=== PATIENT | female | born 1985 ===

== ENCOUNTER 2020-03-28 05:24 | Inpatient (IN) ==
[2020-03-28] MEDS ORDERED: LACTATED RINGER'S 1,000 ML IV SCH ×2 (05:30→10:15)
[2020-03-28 05:54] LABS: Basophils # (auto) 0.03 K/uL (0-0.2); Basophils % (auto) 0.2 %; Eosinophils # (auto) 0.16 K/uL (0-0.5); Eosinophils % (auto) 1.1 %; Hematocrit (blood only) 37.9 % (37-47); Immature Granulocytes % (auto) 0.7 %; Lymphocytes # (auto) 3.09 K/uL (1.2-3.4); Lymphocytes % (auto) 21.1 %; Mean Corpuscular Hemoglobin 31.1 pg (25-34); Mean Corpuscular Hgb Conc 34.3 g/dL (32-36); Mean Corpuscular Volume 90.7 fL (80-100); Monocytes # (auto) 1.31 K/uL (0.11-0.59); Neutrophils # (auto) 9.94 K/uL (1.4-6.5); Neutrophils % (auto) 67.9 %; Platelet Count 244 K/uL (130-400); RDW Coefficient of Variation 13.6 % (11.5-14.5); RDW Standard Deviation 44.6 fL (36.4-46.3); Red Blood Count 4.18 M/uL (4.2-5.4); White Blood Count 14.63 K/uL (4.8-10.8)
[2020-03-28] MEDS: LACTATED RINGER'S 1,000 ML IV SCH ×2 (05:54→06:55)
[2020-03-28] MEDS ORDERED: ceFAZolin 2,000 MG in SYRINGE 0 ML IV SCH (06:00)
[2020-03-28] MEDS ORDERED: CITRIC ACID/SODIUM CITRATE 15 ML UDC PO SCH (06:00)
[2020-03-28] MEDS ORDERED: MoRPHine SULFATE PF 1 MG/ML 10 ML AMP/VIAL ONE (06:35)
[2020-03-28] MEDS ORDERED: fentaNYL citrate 100 MCG/2 ML VIAL ONE (06:35)
[2020-03-28] MEDS ORDERED: ONDANSETRON INJ 2 MG/ML 2 ML VIAL ONE (06:38)
[2020-03-28] MEDS ORDERED: PHENYLEPHRINE 100MCG/ML 5ML SYR ONE (06:38)
[2020-03-28] MEDS ORDERED: OXYTOCIN 10 UNITS/ML VIAL ONE (06:38)
--- NOTE | 2020-03-28 06:51 | Anesthesiology Consultation ---
Date of Service March 28, 2020 Assessment & Plan (1) Encounter for pre-operative examination: Chart Review Chart Review: Acceptable Risk for Surgery and Patient NOT seen in Pre Admission Testing Consults Requested none History Surgery Operation Date: 03/28/20 07:30 Proposed Procedures p Section - Robbie Kirby MD Height/Weight Height: 5 ft 8 in Weight: 115.666 kg Allergies Allergy/AdvReac Type Severity Reaction Status Date / Time No Known Allergies Allergy Verified 03/17/20 14:56 Medications Home Medications Medication Instructions Recorded Confirmed Last Taken no.144-folic acid 1 tab PO DAILY 03/17/20 03/28/20 03/27/20 20:00 [] Active Medications Generic Name Dose Route Start Last Admin Trade Name Freq PRN Reason Stop Dose Admin Lactated Ringer's 1,000 mls @ 999 mls/hr 03/28/20 06:00 03/28/20 05:54 Lr IV 03/28/20 07:00 999 mls/hr .Q1H1M CARLITO Administration Past Medical History Medical History Migraine Exercise / Class Metabolic Activity II 4-5 Yardwork/Stairs/Walk up hill Past Family History Family History Grandmother (Maternal) Family history of diabetes mellitus Other No family history of adverse response to anesthesia Past Surgical History Surgical History History of colposcopy LGSIL- Neg high risk HPV on 10/22/19 [place] teeth removed Past Anesthesia History No Hx of Anesthesia Complications and No Family Hx of Anesthesia Complications History of PONV No Hx of PONV and No Hx of Motion Sickness Social History Smoking Status: Never smoker Hx Alcohol Use: No Hx Substance Use: No substance use type: does not use Physical Exam Vital Signs Last Vital Signs Temp 36.7 C 03/28/20 05:37 Pulse 104 H 03/28/20 05:38 Resp 20 03/28/20 05:37 BP 146/89 H 03/28/20 05:38 Testing Laboratory Results 03/28/20 05:42
--- NOTE | 2020-03-28 07:19 | History & Physical Bridge Note ---
Date of Service March 28, 2020 History & Physical Bridge Note I have examined the patient, reviewed the History & Physical and in the interval since the performance of the History & Physical I have noted the following changes of clinical significance: no changes noted
--- NOTE | 2020-03-28 07:58 | Obstetrical Progress Note ---
Date of Service March 28, 2020 Assessment & Plan Admission and Anticipated Discharge Date Admission Date: March 28, 2020 Subjective Patient scheduled for primary for breech presentation. I did a b edside ultrasound this morning confirming breech presentation. Consents signed. Results & Data ([facility]) Vital Signs (Past 12 Hours) Vital Signs Temp Pulse Resp BP 03/28/20 05:38 104 H 146/89 H 03/28/20 05:37 36.7 C 20 03/28/20 05:34 36.7 C 20
[2020-03-28] MEDS ORDERED: NALOXONE HCL 0.08 MG in SYRINGE 1.8 ML IV PRN (08:24)
[2020-03-28] MEDS ORDERED: KETOROLAC 30 MG/ML VIAL IV PRN (08:24)
[2020-03-28] MEDS ORDERED: ePHEDrine sulfate 50 MG/ML AMP IV PRN (08:24)
[2020-03-28] MEDS ORDERED: ONDANSETRON INJ 2 MG/ML 2 ML VIAL IV PRN (08:24)
[2020-03-28] MEDS ORDERED: NALOXONE HCL 0.4 MG/1 ML VIAL/CARP IV PRN (08:24)
[2020-03-28] MEDS ORDERED: MoRPHine SULFATE PF 1 MG/ML 10 ML AMP/VIAL INT SPINAL ONE (08:24)
[2020-03-28] MEDS ORDERED: MEPERIDINE HCL 25 MG/ML CARP/VIAL IV PRN (08:24)
[2020-03-28] MEDS ORDERED: NALOXONE HCL 1 MG in SODIUM CHLORIDE 0.9% 1000ML 1,000 ML IV PRN (08:24)
[2020-03-28] MEDS ORDERED: diphenhydrAMINE 50 MG/ML VIAL IV PRN (08:24)
[2020-03-28] MEDS ORDERED: LACTATED RINGER'S 500 ML IV PRN (08:24)
[2020-03-28] MEDS ORDERED: MoRPHine SULFATE 2 MG/ML CARP IV PRN (08:24)
[2020-03-28] MEDS ORDERED: NO NARCOTICS OR SEDATIVES SCH (08:30)
[2020-03-28] MEDS ORDERED: SODIUM CHLORIDE 0.9% 1000ML 1,000 ML IV SCH (08:30)
[2020-03-28] MEDS ORDERED: DC INTRASPINAL MORPHINE SCH (08:30)
--- NOTE | 2020-03-28 08:50 | Post Operative Brief Note ---
Immediate Post Op Note v1 Date of Surgery March 28, 2020 Pre & Post Diagnosis Operation Date: 03/28/20 07:30 Pre-Op Diagnosis: 1. Primary Caesarean section 2. Breech presentation Post-Op Diagnosis: Same I identified the patient and participated in the time-out.: Yes Procedure Operation Date: 03/28/20 07:30 Actual Procedures p Section with delivery of viable female at 0818 in Main OR 3. - Robbie Kirby MD Surgeon Robbie Kirby MD Java Grails Developer Dr. Taylor Estimated Blood Loss 600 Findings Consistent with Post-Op Diagnosis Drains Maharaj Catheter (maharaj catheter inserted after spinal placed; clear yellow urine noted upon insertion. )
--- NOTE | 2020-03-28 09:14 | Anesthesiology Progress Note ---
Date of Service March 28, 2020 Anesthesia Post Procedure Vital Signs Vital Signs: Temp Pulse Resp BP Pulse Ox 03/28/20 09:12 83 96 03/28/20 09:11 86 110/56 L 03/28/20 09:07 80 96 03/28/20 09:03 80 112/56 L 03/28/20 09:02 81 91 03/28/20 05:38 104 H 146/89 H 03/28/20 05:37 36.7 C 20 03/28/20 05:34 36.7 C 20 Transfer of Care Handoff Completed per policy Notes Mental Status: alert / awake / arousable and participated in evaluation Patient Amnestic to Procedure: Yes Nausea / Vomiting: adequately controlled Pain: adequately controlled Airway Patency, RR, SpO2: stable & adequate BP & HR: stable & adequate Hydration State: stable & adequate Neuraxial Anesthesia: was administered and sensory block is resolving Anesthetic Complications: no major complications apparent and Pt Satisfied with anesthetic care
[2020-03-28] MEDS ORDERED: HYDROCORTISONE ACETATE 25 MG SUPP PR PRN (10:15)
[2020-03-28] MEDS ORDERED: SENNA 8.6 MG TAB PO PRN (10:15)
[2020-03-28] MEDS ORDERED: NON-FORMULARY MEDICATION (Prenatal No.144-Folic Acid [Prenatal] 400 mcg Tablet,Chewable) PO SCH (10:15)
[2020-03-28] MEDS ORDERED: SUPERCREAM 0.870% 15 GM JAR EXT PRN (10:15)
[2020-03-28] MEDS ORDERED: BENZOCAINE 20% AER SPR 82.5 GM CAN EXT PRN (10:15)
[2020-03-28] MEDS ORDERED: DIPHTHERIA/TETANUS/PERTUSSIS 0.5 ML SYR/VIAL IM ONE (10:15)
[2020-03-28] MEDS ORDERED: MAGNESIUM HYDROXIDE SUSP 30 ML UDC PO PRN (10:15)
[2020-03-28] MEDS ORDERED: OXYTOCIN 30 UNITS in LACTATED RINGER'S 1,000 ML IV SCH (10:30)
[2020-03-28] MEDS: SIMETHICONE 80 MG CHEW PO SCH ×3 (14:48→21:13)
[2020-03-28] MEDS ORDERED: PROMETHAZINE HCL 25 MG in SODIUM CHLORIDE 0.9% 50 ML IV STA (14:57)
[2020-03-28] MEDS: DOCUSATE SODIUM 100 MG CAP PO SCH (21:13)
--- NOTE | 2020-03-28 23:20 | Operative Report (OR) ---
DATE OF OPERATION: 03/28/2020 PREOPERATIVE DIAGNOSIS: Term , cliff breech presentation. POSTOPERATIVE DIAGNOSIS: Term , cliff breech presentation. PROCEDURE: Primary section, low segment transverse. SURGEON: Robbie Kirby MD. FASHION ADVISER: Nba Taylor MD. Dr. Taylor was present and helped with the delivery of the baby including providing retraction, fundal pressure and necessary services that were required during the procedure. ANESTHESIA: Spinal. CLINICAL HISTORY: The patient is a 34-year-old female 1, para 0, at 39 weeks, admitted for primary section for cliff breech presentation. The patient was scanned prior to the start of the confirming breech presentation. Timeout was called prior to the start of the procedure and antibiotics were given preop. FINDINGS: Live female, Apgars were 8 and 9, weight 8 pounds 10 ounces. COMPLICATIONS: None. ESTIMATED BLOOD LOSS: 600 mL. DESCRIPTION OF PROCEDURE: Under satisfactory spinal anesthesia, the patient was prepped and draped in the usual sterile fashion. A low Pfannenstiel incision was then made, carrying down into the abdominal layers in successive layers without difficulty. Upon entering into the abdominal cavity, the uterus was noted to be dextrorotated. The baby was still in the breech presentation. The William self-retaining retractor was placed. Metzenbaum scissors were then used to develop sharp dissection of the bladder flap. A low segment transverse incision over the lower uterine segment was made. The incision was widened in the AP diameter. The amniotic sac was nicked and found to be clear. was then delivered from the cliff breech presentation, delivering a live female. Delayed cord clamping for 1 minute was accomplished. Apgars were 8 and 9, was 8 pounds 10 ounces. After the cord was doubly clamped and cut, baby was handed to cognos bi administrator without any difficulties. Cord blood was obtained and submitted to pathology and the placenta was then delivered spontaneously and intact. Uterus was then exteriorized. Ring forceps were then placed on both angles in the inferior margin and another ring was used to dilate the cervix. Uterus was closed in a double layer closure starting with 0 Vicryl suture in a continuous interlocking fashion followed by a second imbricating suture of 0 Vicryl suture. Initial sponge, needle and instrument count were found to be correct. The lower uterine segment was inspected, no active bleeding was noted. The self-retaining retractor was then removed. The lower uterine segment was once more inspected. The contents of the pelvic and abdominal cavity were then irrigated to clear. Tubes, ovaries bilaterally were found to be normal. Fascia was then reapproximated with 0 Vicryl suture in a continuous fashion. Subcuticular space was then irrigated. Bleeders were cauterized and the subcuticular layer was closed with 3-0 plain suture, followed by 4-0 Monocryl for skin. Steri-Strips were then applied. Clear urine was noted from the Sellers. Estimated blood loss 600 mL. The final sponge, needle and instrument count were found to be correct. The patient was placed supine on a stretcher and taken to recovery room in stable condition. I attest to the content of the Intraoperative Record and any orders documented therein. Any exception s are noted below.
[2020-03-29] MEDS ORDERED: ONDANSETRON INJ 2 MG/ML 2 ML VIAL IV PRN (02:24)
[2020-03-29] MEDS ORDERED: MEPERIDINE HCL 50 MG/ML CARP IV PRN (02:25)
[2020-03-29] MEDS ORDERED: PROMETHAZINE HCL 25 MG in SODIUM CHLORIDE 0.9% 50 ML IV PRN (02:25)
[2020-03-29] MEDS ORDERED: diphenhydrAMINE 50 MG/ML VIAL IV PRN (02:25)
[2020-03-29] MEDS ORDERED: diphenhydrAMINE Capsule 25 MG CAP PO PRN (02:25)
[2020-03-29] MEDS ORDERED: KETOROLAC 30 MG/ML VIAL IV PRN (02:25)
[2020-03-29] MEDS: IBUPROFEN 600 MG TAB PO PRN ×5 (03:25→23:39)
[2020-03-29] MEDS: oxyCODONE/ACETAMINOPHEN 5mg/325mg TAB PO PRN ×5 (03:25→23:39)
[2020-03-29 06:29] LABS: Basophils # (auto) 0.03 K/uL (0-0.2); Basophils % (auto) 0.2 %; Eosinophils % (auto) 0.5 %; Hemoglobin 12.7 g/dL (12.0-16.0); Immature Granulocytes % (auto) 0.5 %; Lymphocytes # (auto) 2.51 K/uL (1.2-3.4); Lymphocytes % (auto) 13.7 %; Mean Corpuscular Hemoglobin 30.9 pg (25-34); Mean Corpuscular Hgb Conc 33.4 g/dL (32-36); Mean Corpuscular Volume 92.5 fL (80-100); Mean Platelet Volume 9.8 fL (7.4-10.4); Monocytes # (auto) 1.62 K/uL (0.11-0.59); Monocytes % (auto) 8.8 %; Neutrophils # (auto) 13.98 K/uL (1.4-6.5); Neutrophils % (auto) 76.3 %; Platelet Count 254 K/uL (130-400); RDW Coefficient of Variation 13.8 % (11.5-14.5); RDW Standard Deviation 46.9 fL (36.4-46.3); Red Blood Count 4.11 M/uL (4.2-5.4); White Blood Count 18.34 K/uL (4.8-10.8)
--- NOTE | 2020-03-29 07:43 | Obstetrical Progress Note ---
Date of Service March 29, 2020 Assessment & Plan Admission and Anticipated Discharge Date Admission Date: March 28, 2020 Subjective Patient is seen and examined. She feels well, no complaints. Pain is under control with oral meds. Ambulating without dizziness. Voiding without difficulty Tolerating regular diet with out N&V Flatus NEG BM NEG Bleeding is minimal No fever/ chills/ CP/ SOB/ N&V/ Leg pain Breast feeding without problems Vital Signs Temp Pulse Resp BP Pulse Ox 03/29/20 03:35 37.0 C 92 H 18 119/78 93 03/29/20 01:10 36.9 C 86 18 106/67 97 03/28/20 23:15 18 97 03/28/20 22:00 16 91 03/28/20 21:00 16 91 03/28/20 20:00 16 93 Lab Results 03/28/20 03/28/20 03/29/20 Range/Units 05:42 05:43 06:08 WBC 14.63 H 18.34 H (4.8-10.8) K/uL RBC 4.18 L 4.11 L (4.2-5.4) M/uL Hgb 13.0 12.7 (12.0-16.0) g/dL Hct 37.9 38.0 (37-47) % MCV 90.7 92.5 (80-100) fL MCH 31.1 30.9 (25-34) pg MCHC 34.3 33.4 (32-36) g/dL RDW Std Deviation 44.6 46.9 H (36.4-46.3) fL RDW Coeff of Pankaj 13.6 13.8 (11.5-14.5) % Plt Count 244 254 (130-400) K/uL MPV 10.0 9.8 (7.4-10.4) fL Immature Gran % (Auto) 0.7 0.5 % Neut % (Auto) 67.9 76.3 % Lymph % (Auto) 21.1 13.7 % [place] % (Auto) 9.0 8.8 % Eos % (Auto) 1.1 0.5 % Baso % (Auto) 0.2 0.2 % Neut # (Auto) 9.94 H 13.98 H (1.4-6.5) K/uL Lymph # (Auto) 3.09 2.51 (1.2-3.4) K/uL [place] # (Auto) 1.31 H 1.62 H (0.11-0.59) K/uL Eos # (Auto) 0.16 0.10 (0-0.5) K/uL Baso # (Auto) 0.03 0.03 (0-0.2) K/uL Immature Gran # (Auto) 0.10 H 0.10 H (0.00-0.02) K/uL Blood Type B Positive Antibody Screen NEGATIVE PE: General: Alert, orientedx3, NAD CVS: S1S2 RRR Lungs; CTAB Abd: soft, NT, ND, BS+, fundus firm, below Umbilicus Incision/ Dressing: Clean, dry, intact Perineum intact, Lochia rubra minimal Ext; NT, no edema, Homans sign neg/ neg AP: 34 yo s/p C Section, pod# 1 VSS Afebrile doing well Continue routine postop care Encourage ambulation, PO intake All questions were answered Results & Data ([facility]) Vital Signs (Past 12 Hours) Vital Signs Temp Pulse Resp BP Pulse Ox 03/29/20 03:35 37.0 C 92 H 18 119/78 93 03/29/20 01:10 36.9 C 86 18 106/67 97 03/28/20 23:15 18 97 03/28/20 22:00 16 91 03/28/20 21:00 16 91 03/28/20 20:00 16 93
[2020-03-29] MEDS: SIMETHICONE 80 MG CHEW PO SCH ×4 (08:44→20:32)
[2020-03-29] MEDS: DOCUSATE SODIUM 100 MG CAP PO SCH ×2 (08:44→20:32)
[2020-03-29] MEDS: FERROUS SULFATE 325 MG TAB PO SCH (10:02)
[2020-03-29] MEDS: PRENATAL VITAMIN 1 TAB PO SCH (10:03)
[2020-03-29] MEDS ORDERED: bisacodyL 5 MG TABEC PO SCH (20:00)
[2020-03-30 07:08] LABS: Basophils # (auto) 0.04 K/uL (0-0.2); Basophils % (auto) 0.3 %; Eosinophils # (auto) 0.33 K/uL (0-0.5); Eosinophils % (auto) 2.4 %; Hematocrit (blood only) 34.6 % (37-47); Hemoglobin 11.5 g/dL (12.0-16.0); Immature Granulocytes # (auto) 0.08 K/uL (0.00-0.02); Immature Granulocytes % (auto) 0.6 %; Mean Corpuscular Hemoglobin 30.6 pg (25-34); Mean Corpuscular Hgb Conc 33.2 g/dL (32-36); Mean Platelet Volume 9.5 fL (7.4-10.4); Monocytes % (auto) 10.3 %; Neutrophils # (auto) 8.37 K/uL (1.4-6.5); Neutrophils % (auto) 61.4 %; Platelet Count 233 K/uL (130-400); RDW Coefficient of Variation 13.7 % (11.5-14.5); RDW Standard Deviation 45.2 fL (36.4-46.3); Red Blood Count 3.76 M/uL (4.2-5.4); White Blood Count 13.62 K/uL (4.8-10.8)
--- NOTE | 2020-03-30 07:26 | Obstetrical Progress Note ---
Date of Service March 30, 2020 Assessment & Plan Admission and Anticipated Discharge Date Admission Date: March 28, 2020 Subjective Patient's O2 sats have been dropping to mid 80's during sleep. Recovers to mid 90's upon waking up She denies CP/SOB/ snoring or h/o Sleep apnea She is alert Orientedx3 NAD CVS S1 S2 RRR Lungs; CTAB, decreased in bases Ext: NT,Arnold's sign neg/ neg, no erythema Episodic hypoxemia Plan consult hospitalist Discussed with hospitalist team Results & Data ([facility]) Vital Signs (Past 12 Hours) Vital Signs Temp Pulse Resp BP Pulse Ox 03/29/20 23:30 37.1 C 90 16 114/65 95
[2020-03-30] MEDS: IBUPROFEN 600 MG TAB PO PRN ×3 (07:51→17:52)
[2020-03-30] MEDS: SIMETHICONE 80 MG CHEW PO SCH ×4 (07:51→21:17)
[2020-03-30] MEDS: oxyCODONE/ACETAMINOPHEN 5mg/325mg TAB PO PRN (07:51)
[2020-03-30] MEDS: DOCUSATE SODIUM 100 MG CAP PO SCH ×2 (07:52→21:17)
[2020-03-30] MEDS: FERROUS SULFATE 325 MG TAB PO SCH (07:52)
[2020-03-30] MEDS: PRENATAL VITAMIN 1 TAB PO SCH (07:52)
[2020-03-30] MEDS ORDERED: bisacodyL 10 MG SUPP PR PRN (08:51)
--- NOTE | 2020-03-30 10:44 | Hospitalist Progress Note ---
Date of Service March 30, 2020 Assessment & Plan Admission and Anticipated Discharge Date Admission Date: March 28, 2020 Results & Data Results & Data ([facility]) Vital Signs (Past 12 Hours) Vital Signs Temp Pulse Resp BP Pulse Ox 03/30/20 07:43 36.9 C 86 18 108/65 96 03/29/20 23:30 37.1 C 90 16 114/65 95
--- NOTE | 2020-03-30 11:08 | XRay Report ---
XR chest 1V portable CLINICAL HISTORY: intermittent hypoxia while sleeping COMPARISON STUDY: No previous studies for comparison. FINDINGS: The cardiac and mediastinal contours are normal. There is no evidence of focal pulmonary co nsolidation. There is no evidence of failure. No pleural effusions are visualized.[ IMPRESSION: No active disease in the chest. ACT 112: Negative or not required by law. Electronically signed by: Leobardo Terry M.D. 03/30/2020 11:06 AM
--- NOTE | 2020-03-30 11:11 | Hospitalist Consultation ---
Date of Consultation March 30, 2020 Assessment & Plan (1) Status post delivery: Status post delivery on 03/28/2020 at 0818 hrs. Under care of DIE CUTTER OPERATOR and the patient is doing fine (2) Nocturnal hypoxia: Reported to have nocturnal hypoxia without any other symptoms associated with it She does not have any past history of asthma and/or COPD and she is a non-smoker Chest x-ray and relevant blood test remarkable unremarkable Doubt any pulmonary embolism and likely secondary to atelectasis Will provide spirometer Will monitor (3) History of migraine: No acute findings She remains medically stable No medical contraindication to discharge the patient History of Present Illness Reason for Consultation: Nocturnal hypoxia Requesting Physician: Dr. Quintanilla Attending Physician: Robbie Kirby MD History of Present Illness She is a 34-year-old female without significant past medical history apparently underwent section with delivery of a viable female on 03/28/2020. She has been doing fine following the delivery but noted to have nocturnal hypoxia by the caring nurse when the hypoxic alarm rang and the patient was noted to have low saturation below 89 on 1 or 2 occasions as per the nursing note. The patient denies any symptoms associated with hypoxia and it is very short lasting. She has not been receiving any significant amount of narcotics and her respiration rate remains normal. She has not had any hemodynamic instability. Denies any calf swelling, any chest pain or palpitation, any shortness of breath, any nausea and/or vomiting. No fever and/or chills. Allergies Allergy/AdvReac Type Severity Reaction Status Date / Time No Known Allergies Allergy Verified 03/17/20 14:56 Home Medications Medication Instructions Recorded Confirmed Type no.144-folic acid 1 tab PO DAILY 03/17/20 03/28/20 History [] Patient History Medical History Migraine Surgical History History of colposcopy LGSIL- Neg high risk HPV on 10/22/19 [place] teeth removed Family History Grandmother (Maternal) Family history of diabetes mellitus Other No family history of adverse response to anesthesia Social History Smoking Status: Never smoker Second Hand Exposure: No; Tobacco Cessation Education Requested by Patient: No Hx Alcohol Use: No Hx Substance Use: No Preferred Language: Kazakh Communication Ability: Effective Hosiery Knitter Required: No Beliefs That Will Affect Care: None marital status: Current Living Situation: Spouse Other Information That Helps Us Care for You: No Feels Safe at Home: Yes Safety Concerns: Feels Safe At This Time Assistive Devices: None Review of Systems Review of Systems: All systems reviewed & are unremarkable except as noted in HPI & below Physical Exam Physical Exam: Lying in bed comfortably Constitutional: well developed and well nourished; no acute distress and not ill appearing Eyes: PERRL, conjunctivae normal, anicteric sclerae ENMT: external ear and nose normal, oropharynx normal Neck: trachea midline, no thyromegaly Respiratory: no respiratory distress Cardiovascular: Rate/Rhythm: regular rate and regular rhythm Heart Sounds: no murmur Extremities: + edema (Trace edema bilaterally) Gastrointestinal (Abdomen): Inspection/Auscultation: + abdomen distended and normal bowel sounds Percussion/Palpation: + abdomen tender (Mildly tender) and abdomen soft Musculoskeletal: No acute arthritis in any joint Neurologic: Alert, awake and oriented x3. No focal sensory and motor deficit appreciated Psychiatric: A+Ox3, euthymic affect Lymphatic: no cervical or axillary lymphadenopathy Results & Data Results & Data ([facility]) Vital Signs (Past 12 Hours) Vital Signs Temp Pulse Resp BP Pulse Ox 03/30/20 07:43 36.9 C 86 18 108/65 96 03/29/20 23:30 37.1 C 90 16 114/65 95 Laboratory Results Short CBC 03/30/20 Range/Units 06:37 WBC 13.62 H (4.8-10.8) K/uL Hgb 11.5 L (12.0-16.0) g/dL Hct 34.6 L (37-47) % Plt Count 233 (130-400) K/uL BMP 03/30/20 10:50 Sodium 142 Potassium 3.7 Chloride 107 Carbon Dioxide 27 BUN 7 Creatinine 0.81 Glucose 95 Calcium 9.0 Medications Administered Current Inpatient Medications Benzocaine (Benzocaine 20% Aer Spr 82.5 Gm Can) 1 appln EXT UD PRN PRN Reason: use on skin as needed Stop: 04/27/20 10:14 Bisacodyl (Bisacodyl 10 Mg Supp) 10 mg PA PRN PRN PRN Reason: Constipation Stop: 04/29/20 08:50 Cocaine HCl (Supercream 0.870% 15 Gm Jar) 1 gm EXT UD PRN PRN Reason: hemmorrhoidal inflammation Stop: 04/11/20 10:14 Diphenhydramine HCl (Diphenhydramine 50 Mg/Ml Vial) 25 mg IV QID PRN PRN Reason: Itching Stop: 04/28/20 02:24 Diphenhydramine HCl (Diphenhydramine Capsule 25 Mg Cap) 25 mg PO QID PRN PRN Reason: Itching Stop: 04/28/20 02:24 Docusate Sodium (Docusate Sodium 100 Mg Cap) 100 mg PO DAILY@ [facility] Stop: 04/27/20 20:59 Last Admin: 03/30/20 07:52 Dose: 100 mg Documented by: Ferrous Sulfate (Ferrous Sulfate 325 Mg Tab) 325 mg PO DAILY@ [facility] Stop: 04/28/20 07:59 Last Admin: 03/30/20 07:52 Dose: 325 mg Documented by: Hydrocortisone (Hydrocortisone Acetate 25 Mg Supp) 25 mg PA BID PRN PRN Reason: Hemorrhoids Stop: 04/27/20 10:14 Lactated Ringer's (Lr) 1,000 mls @ 125 mls/hr IV .Q8H [facility] Stop: 04/27/20 10:14 Last Infusion: 03/29/20 02:30 Dose: Infused Documented by: Promethazine HCl 25 mg/ Sodium (Chloride) 51 mls @ 204 mls/hr IV Q4H PRN PRN Reason: Nausea And Vomiting Stop: 04/28/20 02:24 Oxytocin 30 units/ Lactated (Ringer's) 1,003 mls @ 125 mls/hr IV .Q8H2M [facility] Stop: 04/27/20 10:29 Last Infusion: 03/28/20 20:11 Dose: Infused Documented by: Ibuprofen (Ibuprofen 600 Mg Tab) 600 mg PO Q4H PRN PRN Reason: Pain Stop: 04/27/20 10:14 Last Admin: 03/30/20 07:51 Dose: 600 mg Documented by: Ketorolac Tromethamine (Ketorolac 30 Mg/Ml Vial) 30 mg IV Q6H PRN PRN Reason: Pain Stop: 04/03/20 02:24 Magnesium Hydroxide (Magnesium Hydroxide Susp 30 Ml Udc) 30 ml PO HS PRN PRN Reason: Constipation Stop: 04/27/20 10:14 Meperidine HCl (Meperidine Hcl 50 Mg/Ml Carp) 50 - 75 mg IV Q4H PRN PRN Reason: Pain Stop: 04/12/20 02:24 Ondansetron HCl (Ondansetron Inj 2 Mg/Ml 2 Ml Vial) 4 mg IV Q4H PRN PRN Reason: Nausea And Vomiting Stop: 04/28/20 02:23 Oxycodone/Acetaminophen (Oxycodone/Acetaminophen 5mg/325mg Tab) 1 - 2 tab PO Q4H PRN PRN Reason: Pain Stop: 04/12/20 02:24 Last Admin: 03/30/20 07:51 Dose: 1 tab Documented by: Prenat Multivit/[place]/Iron/Folic Ac ( Vitamin 1 Tab) 1 tab PO DAILY@08 [facility] Stop: 04/28/20 07:59 Last Admin: 03/30/20 07:52 Dose: 1 tab Documented by: Sennosides (Senna 8.6 Mg Tab) 17.2 mg PO HS PRN PRN Reason: Constipation Stop: 04/27/20 10:14 Simethicone (Simethicone 80 Mg Chew) 80 mg PO DAILY@08,13,, [facility] Stop: 04/27/20 12:59 Last Admin: 03/30/20 07:51 Dose: 80 mg Documented by:
[2020-03-30 11:25] LABS: BUN Creatinine Ratio 8.8 (10-20); Creatinine Clr Calc Pharmacy 133.2 ml/min; Est GFR (African American) 111.4; Est GFR (Non-African American) 96.1; Magnesium 1.9 mg/dl (1.8-2.4); Potassium 3.7 mmol/L (3.5-5.1)
--- NOTE | 2020-03-30 11:55 | Obstetrical Progress Note ---
Date of Service March 30, 2020 Assessment & Plan Admission and Anticipated Discharge Date Admission Date: March 28, 2020 Subjective PPD#2 doing fine no SOB or dizziness when up or OOB no chest pain out of bed and ambulating without pain or discomfort tolerating diet passing gas Physical Exam Constitutional: WD/WN, vitals as above well developed and comfortable incision c/d/i abdomen soft and non-tender fundus firm no edema neg Homna's w/u by medicine for low pulse ox in progress CXR is normal labs normal so far appreciate consult tent d/c in AM Results & Data ([facility]) Vital Signs (Past 12 Hours) Vital Signs Temp Pulse Resp BP Pulse Ox 03/30/20 07:43 36.9 C 86 18 108/65 96 Laboratory Results Laboratory Results - last 72 hr 03/28/20 03/28/20 03/29/20 05:42 05:43 06:08 WBC 14.63 H 18.34 H RBC 4.18 L 4.11 L Hgb 13.0 12.7 Hct 37.9 38.0 MCV 90.7 92.5 MCH 31.1 30.9 MCHC 34.3 33.4 RDW Std Deviation 44.6 46.9 H RDW Coeff of Pankaj 13.6 13.8 Plt Count 244 254 MPV 10.0 9.8 Immature Gran % (Auto) 0.7 0.5 Neut % (Auto) 67.9 76.3 Lymph % (Auto) 21.1 13.7 [place] % (Auto) 9.0 8.8 Eos % (Auto) 1.1 0.5 Baso % (Auto) 0.2 0.2 Neut # (Auto) 9.94 H 13.98 H Lymph # (Auto) 3.09 2.51 [place] # (Auto) 1.31 H 1.62 H Eos # (Auto) 0.16 0.10 Baso # (Auto) 0.03 0.03 Immature Gran # (Auto) 0.10 H 0.10 H Sodium Potassium Chloride Carbon Dioxide Anion Gap BUN Creatinine Est Cr Clr Drug Dosing Est GFR ( Amer) Est GFR (Non-Af Amer) BUN/Creatinine Ratio Glucose Calcium Magnesium Blood Type B Positive Antibody Screen NEGATIVE 03/30/20 03/30/20 06:37 10:50 WBC 13.62 H RBC 3.76 L Hgb 11.5 L Hct 34.6 L MCV 92.0 MCH 30.6 MCHC 33.2 RDW Std Deviation 45.2 RDW Coeff of Pankaj 13.7 Plt Count 233 MPV 9.5 Immature Gran % (Auto) 0.6 Neut % (Auto) 61.4 Lymph % (Auto) 25.0 [place] % (Auto) 10.3 Eos % (Auto) 2.4 Baso % (Auto) 0.3 Neut # (Auto) 8.37 H Lymph # (Auto) 3.40 [place] # (Auto) 1.40 H Eos # (Auto) 0.33 Baso # (Auto) 0.04 Immature Gran # (Auto) 0.08 H Sodium 142 Potassium 3.7 Chloride 107 Carbon Dioxide 27 Anion Gap 8.0 BUN 7 Creatinine 0.81 Est Cr Clr Drug Dosing 133.2 Est GFR ( Amer) 111.4 Est GFR (Non-Af Amer) 96.1 BUN/Creatinine Ratio 8.8 L Glucose 95 Calcium 9.0 Magnesium 1.9 Blood Type Antibody Screen
--- NOTE | 2020-03-30 16:35 | Electrocardiogram Report ---
Test Reason : Blood Pressure : / mmHG Vent. Rate : 089 BPM Atrial Rate : 089 BPM P-R Int : 124 ms QRS Dur : 076 ms QT Int : 350 ms P-R-T Axes : 029 013 045 degrees QTc Int : 425 ms Normal sinus rhythm Normal ECG No previous ECGs available Confirmed by Jaylen Sanchez ([id number]) on 03/30/2020 4:35:34 PM Referred By: Robbie Kirby Confirmed By:Jaylen Sanchez
[2020-03-31] MEDS: IBUPROFEN 600 MG TAB PO PRN ×3 (00:10→09:39)
--- NOTE | 2020-03-31 07:46 | Obstetrical Progress Note ---
Date of Service March 31, 2020 Assessment & Plan Admission and Anticipated Discharge Date Admission Date: March 28, 2020 Subjective Patient is seen and examined. She feels well, no complaints. Pain is under control with oral meds. Ambulating without dizziness Voiding without difficulty Tolerating regular diet with out N&V Flatus + BM neg Bleeding is minimal No fever/ chills/ CP/ SOB/ N&V/ Leg pain Breast feeding without problems Vital Signs Temp Pulse Resp BP Pulse Ox 03/31/20 01:37 81 L 03/31/20 01:35 84 L 03/30/20 23:30 36.5 C 77 20 133/83 97 03/30/20 19:35 36.8 C 88 18 120/79 96 03/30/20 15:45 37.0 C 100 H 18 112/66 96 03/30/20 11:40 37.1 C 90 18 117/77 95 Lab Results 03/28/20 03/28/20 03/29/20 Range/Units 05:42 05:43 06:08 WBC 14.63 H 18.34 H (4.8-10.8) K/uL RBC 4.18 L 4.11 L (4.2-5.4) M/uL Hgb 13.0 12.7 (12.0-16.0) g/dL Hct 37.9 38.0 (37-47) % MCV 90.7 92.5 (80-100) fL MCH 31.1 30.9 (25-34) pg MCHC 34.3 33.4 (32-36) g/dL RDW Std Deviation 44.6 46.9 H (36.4-46.3) fL RDW Coeff of Pankaj 13.6 13.8 (11.5-14.5) % Plt Count 244 254 (130-400) K/uL MPV 10.0 9.8 (7.4-10.4) fL Immature Gran % (Auto) 0.7 0.5 % Neut % (Auto) 67.9 76.3 % Lymph % (Auto) 21.1 13.7 % [place] % (Auto) 9.0 8.8 % Eos % (Auto) 1.1 0.5 % Baso % (Auto) 0.2 0.2 % Neut # (Auto) 9.94 H 13.98 H (1.4-6.5) K/uL Lymph # (Auto) 3.09 2.51 (1.2-3.4) K/uL [place] # (Auto) 1.31 H 1.62 H (0.11-0.59) K/uL Eos # (Auto) 0.16 0.10 (0-0.5) K/uL Baso # (Auto) 0.03 0.03 (0-0.2) K/uL Immature Gran # (Auto) 0.10 H 0.10 H (0.00-0.02) K/uL Sodium (136-145) mmol/L Potassium (3.5-5.1) mmol/L Chloride (98-107) mmol/L Carbon Dioxide (21-32) mmol/L Anion Gap (3-11) BUN (7-18) mg/dl Creatinine (0.6-1.2) mg/dl Est Cr Clr Drug Dosing ml/min Est GFR ( Amer) Est GFR (Non-Af Amer) BUN/Creatinine Ratio (10-20) Glucose (70-99) mg/dl Calcium (8.5-10.1) mg/dl Magnesium (1.8-2.4) mg/dl Blood Type B Positive Antibody Screen NEGATIVE 03/30/20 03/30/20 Range/Units 06:37 10:50 WBC 13.62 H (4.8-10.8) K/uL RBC 3.76 L (4.2-5.4) M/uL Hgb 11.5 L (12.0-16.0) g/dL Hct 34.6 L (37-47) % MCV 92.0 (80-100) fL MCH 30.6 (25-34) pg MCHC 33.2 (32-36) g/dL RDW Std Deviation 45.2 (36.4-46.3) fL RDW Coeff of Pankaj 13.7 (11.5-14.5) % Plt Count 233 (130-400) K/uL MPV 9.5 (7.4-10.4) fL Immature Gran % (Auto) 0.6 % Neut % (Auto) 61.4 % Lymph % (Auto) 25.0 % [place] % (Auto) 10.3 % Eos % (Auto) 2.4 % Baso % (Auto) 0.3 % Neut # (Auto) 8.37 H (1.4-6.5) K/uL Lymph # (Auto) 3.40 (1.2-3.4) K/uL [place] # (Auto) 1.40 H (0.11-0.59) K/uL Eos # (Auto) 0.33 (0-0.5) K/uL Baso # (Auto) 0.04 (0-0.2) K/uL Immature Gran # (Auto) 0.08 H (0.00-0.02) K/uL Sodium 142 (136-145) mmol/L Potassium 3.7 (3.5-5.1) mmol/L Chloride 107 (98-107) mmol/L Carbon Dioxide 27 (21-32) mmol/L Anion Gap 8.0 (3-11) BUN 7 (7-18) mg/dl Creatinine 0.81 (0.6-1.2) mg/dl Est Cr Clr Drug Dosing 133.2 ml/min Est GFR ( Amer) 111.4 Est GFR (Non-Af Amer) 96.1 BUN/Creatinine Ratio 8.8 L (10-20) Glucose 95 (70-99) mg/dl Calcium 9.0 (8.5-10.1) mg/dl Magnesium 1.9 (1.8-2.4) mg/dl Blood Type Antibody Screen PE: General: Alert, orientedx3, NAD CVS: S1S2 RRR Lungs; CTAB Abd: soft, NT, ND, BS+, fundus firm, below Umbilicus Incision: Clean, dry, intact Perineum intact, Lochia rubra minimal Ext; NT, no edema AP: 34 yo s/p C Section, pod# 3 VSS Afebrile doing well Seen by medicine for sleep apnea, normal CXR, ECG, no symptoms Encourage ambulation, inspirex use f/u with PCP All questions were answered D/C home , f/u in office Results & Data ([facility]) Vital Signs (Past 12 Hours) Vital Signs Temp Pulse Resp BP Pulse Ox 03/31/20 01:37 81 L 03/31/20 01:35 84 L 03/30/20 23:30 36.5 C 77 20 133/83 97
[2020-03-31] MEDS: SIMETHICONE 80 MG CHEW PO SCH (09:39)
[2020-03-31] MEDS: DOCUSATE SODIUM 100 MG CAP PO SCH (09:39)
[2020-03-31] MEDS: PRENATAL VITAMIN 1 TAB PO SCH (09:39)
[2020-03-31] MEDS: FERROUS SULFATE 325 MG TAB PO SCH (09:39)
--- NOTE | 2020-03-31 20:08 | Hospitalist Progress Note ---
Date of Service March 31, 2020 Assessment & Plan (1) Nocturnal hypoxia: Patient does not have classic obstructive sleep apnea symptoms No signs of acute volume overload or pulmonary embolism Chest x-ray no acute findings Ambulating with no problems Denies respiratory issues Discussed case with patient in detail Recommend outpatient follow-up for possible nocturnal pulse oximetry for formal sleep study Admission and Anticipated Discharge Date Admission Date: March 28, 2020 Subjective Follow-up for episodic hypoxia noted while asleep Patient seen sitting up in bed, comfortable, not in distress, in good spirits She feels fine overall Denies shortness of breath, cough, chest pain, palpitations, dizziness No headache, abdominal pain, nausea vomiting Ambulating with no problems Denies daytime sleepiness, narcolepsy She feels refreshed after waking up No other symptoms Review of Systems Review of Systems: All systems reviewed & are unremarkable except as noted in Subjective Physical Exam Physical Exam: General- oriented x 3, not in distress, speaks in sentences with no effort or accessory muscle use Eyes- anicteric Neck- no JVD Lungs- clear breath sounds bilaterally, no rales/wheezes Heart- normal rate, regular rhythm; no murmurs Abdomen- normal bowel sounds, nondistended, soft, nontender Extremities- Trace pretibial edema, no calf tenderness/Erythema Neuro- alert, oriented x 3; no gross focal neurologic deficits Skin- warm & dry Results & Data Results & Data ([facility]) Vital Signs (Past 12 Hours) Vital Signs Temp Pulse Resp BP Pulse Ox 03/31/20 13:12 36.5 C 77 20 133/83 81 L
--- NOTE | 2020-04-07 09:18 | Discharge Summary (DS) ---
REASON FOR ADMISSION AND HOSPITAL COURSE: The patient is a 34-year-old female 1, para 0, at 39 weeks, admitted for section for cliff breech presentation. The patient was scanned prior to start of procedure. Surgery was performed without difficulty delivering a live female, Apgars were 8 and 9. weight was 8 pounds 10 ounces. Hospital course uncomplicated. The patient discharged home in stable condition. Regular diet on discharge. Followup will be in 1 week. MEDICATIONS ON DISCHARGE: Include Percocet and Motrin.
--- NOTE | 2020-04-10 14:18 | Coding Query ---
CODING QUERY To promote full compliance with coding requirements relating to patient care, provider participation is requested in all cases of environmental conservation officer uncertainty. Please assist us with the question(s) below: Coding Question(s): The Obstetrical Progress Note on 03/30/20 document Episodic Hypoxemia and the 03/30/20 Hospitalist Consultation documents, "Nocturnal hypoxia: Reported to have nocturnal hypoxia without any other symptoms associated with it She does not have any past history of asthma and/or COPD and she is a non-smoker Chest x-ray and relevant blood test remarkable unremarkable Doubt any pulmonary embolism and likely secondary to atelectasis Will provide spirometer Will monitor", and the 03/31/20 Hospitalist Progress Note documents, "Nocturnal hypoxia: Patient does not have classic obstructive sleep apnea symptoms No signs of acute volume overload or pulmonary embolism Chest x-ray no acute findings Ambulating with no problems Denies respiratory issues Discussed case with patient in detail Recommend outpatient follow-up for possible nocturnal pulse oximetry for formal sleep study". There is no mention of Hypoxia or Atelectasis on the Discharge Summary. Please specify below, in your clinical opinion. ( ) likely Nocturnal Hypoxia and Atelectasis ( x ) likely Nocturnal Hypoxia with No Atelectasis. Atelectasis is Ruled-Out ( ) likely Other: Please Specify Physician's Response(s): Thank you Trixie Sweet Principal Diagnosis: "that condition established after study, to be chiefly responsible for occasioning the admission of the patient to the hospital for care." Co-Existing Principal Diagnosis: "when two or more diagnoses equally meet the criteria for principal diagnosis as determined by the circumstances of admission, diagnostic work up, and/or therapy provided, and the Alphabetic Index, Tabular List, or another coding guideline does not provide sequencing direction, any one of the diagnoses may be sequenced first." "When the physician has documented what appears to be a current diagnosis in the body of the record, but has not included the diagnosis in the final diagnostic statement, the physician should be asked whether the diagnosis should be added." (Source Coding [facility] 2 QTR90. p3-4) OSVALDO
== END 2020-03-31 15:50 | disposition home or self-care (01) | DRG 788 ==
LOC: 4S1 05:24 → EDSTATUS 07:30 → 4S2 11:44